=== PATIENT | female | born 1990 | race Caucasian/White ===

== ENCOUNTER → 2023-09-06 16:08 | Outpatient (REF) | payer OTHER, SELFPAY | LOC: HWRAD 16:08 | PROVIDERS: ATTENDING PHYSICIAN Chiropractor; FAMILY PHYSICIAN Family Medicine | DX: M99.06 Segmental and somatic dysfunction of lower extremity (principal) | CPT/HCPCS: 73502 ==

== ENCOUNTER → 2023-09-21 11:19 | Outpatient (REF) | payer OTHER, SELFPAY | LOC: MRI 3T 11:19 | PROVIDERS: ATTENDING PHYSICIAN Physician Assistant Medical; FAMILY PHYSICIAN Family Medicine | DX: M51.26 Other intervertebral disc displacement, lumbar region (principal); M51.36 Other intervertebral disc degeneration, lumbar region | CPT/HCPCS: 72148 ==

== ENCOUNTER → 2024-04-09 07:58 | Outpatient (REF) | payer OTHER, SELFPAY | LOC: HWRAD 07:58 | PROVIDERS: ATTENDING PHYSICIAN Student in an Organized Health Care Education/Training Program | DX: R05.9 Cough, unspecified (principal) | CPT/HCPCS: 71046 ==